=== PATIENT | female | born 1985 | race Caucasian/White ===

== ENCOUNTER 2021-12-12 15:24 | Emergency (ER) | payer BC ==
[2021-12-12] MEDS ORDERED: Metoclopramide 10 MG/2 ML SDV IVPUSH ONE (15:58)
[2021-12-12] MEDS ORDERED: diphenhydrAMINE 50 MG/ML SDV IVPUSH ONE (15:58)
[2021-12-12] MEDS ORDERED: Lactated Ringers 1,000 ML IV ONE (15:58)
[2021-12-12] MEDS ORDERED: Meclizine 12.5 MG Tab PO ONE (15:59)
[2021-12-12] MEDS ORDERED: Iopamidol 755 Mg/ML 100 ML Bottle IVPUSH ONE (16:54)
[2021-12-12] MEDS ORDERED: Sodium Chloride 0.9% 10 ML Syringe FLUSH PRN (16:54)
[2021-12-12] MEDS ORDERED: Sodium Chloride 0.9% 100 ML IV SCH (17:00)
== END 2021-12-12 19:00 | disposition home or self-care (01) ==
LOC: JD.ED 15:24
DX: R42 Dizziness and giddiness (principal); Z88.5 Allergy status to narcotic agent
CPT/HCPCS: 36415; 70450; 70496; 70498; 80053; 83735; 84703; 85025; 85610; 96361; 96374; 96375; 99284; A9270; J1200; J2765; J3490; J7120; Q9967